=== PATIENT | female | born 2005 | race Caucasian/White ===

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

== ENCOUNTER 2023-01-05 11:56 | Outpatient (REF) | payer OTHER, SELFPAY | END 2023-01-05 11:57 | disposition home or self-care (01) | LOC: HO.LAB 11:56 | PROVIDERS: Visit Provider Nurse Practitioner Family | DX: R39.9 Unspecified symptoms and signs involving the genitourinary system (principal) | CPT/HCPCS: 87086 ==

== ENCOUNTER 2023-07-08 01:34 | Emergency (ER) | payer SELFPAY ==
--- NOTE | 2023-07-08 | ECG_ITS ---
Test Reason : CHEST PAIN Blood Pressure : / mmHG Vent. Rate : 088 BPM Atrial Rate : 088 BPM P-R Int : 142 ms QRS Dur : 082 ms QT Int : 368 ms P-R-T Axes : 039 055 048 degrees QTc Int : 445 ms Normal sinus rhythm Normal ECG No previous ECGs available Referred By: Generic ED Physician Electronically Signed By:AUGUSTINA ALVARENGA
[2023-07-08 01:52] VITALS: BP 124/71; PULSE 79; RESP 16; TEMP 36.9; O2SAT 100; BMI 32.0
--- NOTE | 2023-07-08 01:55 | MHC.EDTECH ---
PATIENT SIGN IN WITH CHEST PAIN PATIENT EKG TAKEN AND WAS READ BY PROVIDER ,BLOOD DRAWN DONE IN TRIAGE ,AND VITALS ,PT BACK IN WAITING ROOM .
[2023-07-08 02:01] LABS: Hematocrit 36.2 % (37.0-47.0); Hemoglobin 12.4 g/dl (12.0-16.0); Mean Corpuscular HGB Conc 34.3 g/dl (31.0-35.0); Mean Corpuscular Hemoglobin 28.2 pg (27.0-33.0); Mean Corpuscular Volume 82.3 fL (80.0-98.0); Mean Platelet Volume 9.4 fL (9.4-12.3); Platelet Count 378 X10*3/uL (160-400); Red Cell Distribution Width 12.8 % (11.0-16.0); White Blood Count 7.4 X10*3/uL (4.8-10.8)
[2023-07-08 02:18] LABS: Alanine Aminotransferase 19 U/L (0-31); Albumin Level 4.6 g/dL (3.5-5.0); Alkaline Phosphatase 84 U/L (39-117); Anion Gap 20 (12-20); Aspartate Amino Transferase 22 U/L (5-31); Bilirubin Total 0.3 mg/dL (0.0-1.0); Blood Urea Nitrogen 15 mg/dL (9-16); Calcium 10.1 mg/dL (8.4-10.2); Carbon Dioxide 22 mmol/L (22-29); Chloride 105 mmol/L (96-108); Creatinine Clr Calc Pharmacy 134.4; Estimated Glomerular Filt Rate > 60; Glucose Random 86 mg/dL (60-115); Potassium 3.9 mmol/L (3.3-5.1); Sodium 143 mmol/L (135-145)
[2023-07-08 02:27] LABS: Troponin-I High Sensitivity < 2.7 ng/L (<3.5-17.0)
[2023-07-08 02:29] VITALS: BP 136/77; PULSE 76; RESP 15; TEMP 36.6; O2SAT 100
--- NOTE | 2023-07-08 03:35 | ED_ITS ---
HPI - Chest Pain General Chief Complaint: Chest Pain Stated Complaint: Chest pain Time Seen by Provider: 07/08/23 03:31 Source: patient and family Mode of arrival: ambulatory Limitations: no limitations History of Present Illness HPI narrative: Patient comes to the emergency room accompanied by her mother. Patient complaining of palpitations. Patient states that earlier today after eating hamburgers she started having palpitations. Patient denies significant chest pain, no shortness of breath. At this time, patient is asymptomatic Related Data Home Medications Medication Instructions Recorded Confirmed No Known Home Meds 08/06/21 07/08/23 Allergies Allergy/AdvReac Type Severity Reaction Status Date / Time phenobarbital [PHENOBARBITAL] Allergy Unknown RASH Verified 01/05/23 11:47 phenobarbital Allergy Unknown rash Uncoded 01/05/23 11:47 Review of Systems 2 Review of Systems: Constitutional : No Weight loss, No Fever, No Chills, No Night Sweats, No Fatigue, No Malaise ENT/Mouth : No Hearing loss, No Ear Pain, No Nasal Congestion, No Sinus Pain, No Hoarseness, No sore throat, No Rhinorrhea, No Swallowing Difficulty Eyes: No Eye Pain, No Swelling, No Redness, No Foreign Body, No Discharge, No Vision Changes Cardiovascular : No Chest Pain, No SOB, No Dyspnea on Exertion, No Orthopnea, No Edema, complaining of Palpitations Respiratory : No Cough, No Sputum, No Wheezing, No Smoke Exposure, No Dyspnea Gastrointestinal : No Nausea, No Vomiting, No Diarrhea, No Constipation, No abdominal Pain, No Hematochezia, No Melena Genitourinary : no irregular bleeding, No Dysuria, No Urinary Frequency, No Hematuria, No Urinary Incontinence, No Urgency, No Flank Pain, No Urinary Flow Changes, No Hesitancy Musculoskeletal : No joint pain, No Myalgias, No Joint Swelling Skin : No Skin Lesions, No rash Neuro : No Weakness, No Numbness, No Paresthesias, No Loss of Consciousness, No Dizziness, No Headache Psych : No Anxiety/Panic, No Depression, No SI/HI/AH/VH, No Social Issues, Heme/Lymph: No Bruising, No Bleeding,No Lymphadenopathy Endocrine : No Polyuria, No Polydipsia, No Temperature Intolerance PMFSH Past Medical History Medical History (Updated 07/08/23 @ 03:40 by Albertina Estes MD) Fibromyalgia Family History Family History (Updated 06/25/21 @ 10:04 by Ivone Pineda CMA) Mother No problems noted. Social History Social History (Updated 06/25/21 @ 10:04 by Ivone Pineda CMA) Household Members: Family Alcohol intake: never Patient Tobacco Use Status: Never used Tobacco Smoked in Last 30 Days: No Use of substances other than those prescribed or required for medical reasons: No Advance Directives: No Advance Directives Information Provided: Yes Patient : No Physical Exam 2 Vital Signs: Vital Signs: Last Vital Signs Temp 97.9 F 07/08/23 02:29 Pulse 76 07/08/23 02:29 Resp 15 07/08/23 02:29 BP 136/77 07/08/23 02:29 Pulse Ox 100 07/08/23 02:29 O2 Del Method Room Air 07/08/23 02:29 BMI result Body Mass Index 32.0 Const: Other: Appearance: Alert. Oriented X3. No acute distress. Eyes: Pupils equal, round and reactive to light. ENT: Pharynx normal. Neck: Normal inspection. Neck supple. No lymph nodes noted. No crepitus CVS: Normal heart rate and rhythm. Pulses normal. Normal S1 and S2 Respiratory: No respiratory distress. Breath sounds normal. No Wheezing. No rales Abdomen: Soft and nontender. No rigidity. No distention. Skin: Skin warm and dry. Normal skin color. Normal skin turgor. Extremities: No lower extremity edema. No Lacerations. No Rash Neuro: Oriented X 3. No motor deficit. No sensory deficit. Moving all extremities. No slurred speech. CN 2 through 12 grossly intact Psych: calm, cooperative, normal affect Medical Decision Making Medical Decision Making MDM Narrative: -my interpretation of labs: Normal sinus rhythm, heart rate 88, no ST segment depression or elevation, not to be admission, QTC 445. Troponin negative -patient is asymptomatic. Patient struck to follow-up with her primary care physician. The patient keeps having palpitations, discussed with the patient and her mother that she will likely need a Holter monitor evaluation. - Differential Diagnosis Differential Diagnoses: The differential diagnosis associated with the presentation includes (Palpitations, anxiety, indigestion) Lab Data 07/08/23 01:53 07/08/23 01:53 Labs: Lab Results 07/08/23 Range/Units 01:53 WBC 7.4 (4.8-10.8) X10*3/uL RBC 4.40 (4.20-5.50) X10*6/uL Hgb 12.4 (12.0-16.0) g/dl Hct 36.2 L (37.0-47.0) % MCV 82.3 (80.0-98.0) fL MCH 28.2 (27.0-33.0) pg MCHC 34.3 (31.0-35.0) g/dl RDW 12.8 (11.0-16.0) % Plt Count 378 (160-400) X10*3/uL MPV 9.4 (9.4-12.3) fL Absolute Nucleated RBC 0.000 (0.0-0.012) X10*3/uL Nucleated RBC % (auto) 0.0 (0.0-0.2) /100WBC Sodium 143 (135-145) mmol/L Potassium 3.9 (3.3-5.1) mmol/L Chloride 105 (96-108) mmol/L Carbon Dioxide 22 (22-29) mmol/L Anion Gap 20 (12-20) BUN 15 (9-16) mg/dL Creatinine 0.76 (0.5-1.4) mg/dL Estim Creat Clear Calc 134.4 Estimated GFR > 60 Random Glucose 86 (60-115) mg/dL Calcium 10.1 (8.4-10.2) mg/dL Total Bilirubin 0.3 (0.0-1.0) mg/dL AST 22 (5-31) U/L ALT 19 (0-31) U/L Alkaline Phosphatase 84 (39-117) U/L Troponin I High Sens < 2.7 (<3.5-17.0) ng/L Total Protein 8.0 (6.5-8.0) g/dL Albumin 4.6 (3.5-5.0) g/dL Discharge Plan Discharge Clinical Impression: Palpitations Patient Disposition: Home, Self-Care Instructions: Heart Palpitations (ED) Additional Instructions: Please follow-up with your primary care physician tomorrow. If you have any worsening or new symptoms, please return to the emergency room or call 911 Prescriptions: No Action No Known Home Meds
[2023-07-08 03:46] VITALS: BP 130/79; PULSE 71; RESP 12; TEMP 36.8; O2SAT 98
== END 2023-07-08 04:00 | disposition home or self-care (01) ==
PROVIDERS: Emergency Provider Emergency Medicine
DX: R00.2 Palpitations (principal)
CPT/HCPCS: 36415; 80053; 84484; 85027; 93005; 99283; 99285

== ENCOUNTER 2023-12-21 23:37 | Emergency (ER) | payer MEDICAID, OTHER, SELFPAY ==
[2023-12-21 23:48] VITALS: BP 124/88; PULSE 98; RESP 16; TEMP 36.8; O2SAT 99; BMI 34.2
[2023-12-22 00:17] LABS: MANUAL DIFF FLAG NO
[2023-12-22 00:18] LABS: Basophils Percent Auto 0.4 % (0-2); Eosinophils Absolute Auto 0.1 X10*3/uL (0.0-0.4); Eosinophils Percent Auto 0.9 % (0-4); Hematocrit 35.5 % (37.0-47.0); Hemoglobin 12.6 g/dl (12.0-16.0); Imm Gran Abs Auto 0.01 X10*3/uL (0.00-0.03); Imm Gran Pct Auto 0.1 % (0.0-0.4); Lymphocytes Absolute Auto 2.2 X10*3/uL (1.2-4.9); Lymphocytes Percent Auto 27.1 % (20-40); Mean Corpuscular HGB Conc 35.5 g/dl (31.0-35.0); Mean Corpuscular Hemoglobin 28.3 pg (27.0-33.0); Mean Corpuscular Volume 79.6 fL (80.0-98.0); Mean Platelet Volume 8.8 fL (9.4-12.3); Monocytes Absolute Auto 0.5 X10*3/uL (0.1-1.2); Monocytes Percent Auto 6.3 % (2-11); Neutrophils Absolute Auto 5.2 x10*3/uL (2.0-8.3); Neutrophils Percent Auto 65.2 % (45-73); Platelet Count 384 X10*3/uL (160-400); Red Blood Count 4.46 X10*6/uL (4.20-5.50); Red Cell Distribution Width 12.7 % (11.0-16.0); White Blood Count 7.9 X10*3/uL (4.8-10.8)
[2023-12-22 00:19] LABS: Appearance Urine Clear; Color Urine Yellow; Glucose Urine UA Negative (Negative); Leukocyte Esterase Urine Negative (Negative); Nitrite Urine Negative (Negative); Specific Gravity - Urine >= 1.030 (1.005-1.025); UMIC TRIGGER UACC YES; Urine Blood Trace (Negative); Urine Ketones 40 mg/dL (Negative); Urine Protein Trace mg/dL (Neg-Trace)
[2023-12-22 00:24] LABS: Bacteria Urine None Seen (None Seen); Hyaline Casts Urine 0-2 /LPF (0-2); WBC Urine 0-5 /HPF (0-5)
[2023-12-22 00:38] LABS: Alanine Aminotransferase 19 U/L (0-31); Albumin Level 4.5 g/dL (3.5-5.0); Alkaline Phosphatase 81 U/L (39-117); Anion Gap 15 (12-20); Aspartate Amino Transferase 22 U/L (5-31); Bilirubin Total 0.6 mg/dL (0.0-1.0); Blood Urea Nitrogen 12 mg/dL (9-16); Calcium 9.5 mg/dL (8.4-10.2); Carbon Dioxide 23 mmol/L (22-29); Chloride 105 mmol/L (96-108); Creatinine Clr Calc Pharmacy 149.9; Estimated Glomerular Filt Rate > 60; Glucose Random 85 mg/dL (60-115); Lipase 42 U/L (8-78); Potassium 3.9 mmol/L (3.3-5.1); Sodium 139 mmol/L (135-145); Total Protein 7.9 g/dL (6.5-8.0)
[2023-12-22 00:45] LABS: HCG Quantitative < 2 mIU/mL
[2023-12-22 02:45] VITALS: BP 129/82; PULSE 81; RESP 16; TEMP 36.6; O2SAT 96
--- NOTE | 2023-12-22 03:14 | ED_ITS ---
HPI - Abdominal Pain General Chief Complaint: Abdominal Pain Stated Complaint: Abd pain Time Seen by Provider: 12/22/23 03:02 Source: patient Mode of arrival: ambulatory Limitations: no limitations History of Present Illness HPI narrative: Patient been have diffuse abdominal cramps for last 2 weeks does have history of fibromyalgia and increased stress lately and does have constipation off and on feel bloated no fever no chills no nausea no vomiting no blood in the stool Related Data Previous Rx's Medication Instructions Recorded dicyclomine 20 mg tablet 20 mg PO TID PRN abdominal pain 12/22/23 #20 tabs Allergies Allergy/AdvReac Type Severity Reaction Status Date / Time phenobarbital [PHENOBARBITAL] Allergy Unknown RASH Verified 01/05/23 11:47 phenobarbital Allergy Unknown rash Uncoded 01/05/23 11:47 Review of Systems Review of Systems Yes all other systems are reviewed and are negative [facility] Past Medical History Medical History Fibromyalgia Family History Family History Mother No problems noted. Social History Social History Household Members: Family Alcohol intake: current Patient Tobacco Use Status: Never used Tobacco Smoked in Last 30 Days: No Use of substances other than those prescribed or required for medical reasons: No Advance Directives: No Advance Directives Information Provided: Yes Physical Exam ED Vital Signs: Vital Signs - 24 hr 12/21/23 23:48 12/22/23 02:45 Temperature 98.3 F 97.8 F Pulse Rate 98 81 Respiratory Rate 16 16 Blood Pressure 124/88 129/82 Pulse Oximetry 99 96 Oxygen Delivery Method Room Air Room Air BMI result Body Mass Index 34.2 Appearance: Alert. Oriented X3. No acute distress. Eyes: No pallor or icterus ENT: Pharynx normal. Oral Mucosa moist Neck: Normal inspection. Neck supple. CVS: Normal heart rate and rhythm. Pulses normal. Respiratory: No respiratory distress. Equal air entry bilateral, no wheezing/rales/rhonchi Abdomen: Soft and no focal tenderness diffuse discomfort no rebound tenderness or guarding Bowel sounds are present, no mass palpable, no CVA tenderness Skin: Skin warm and dry. Normal skin color. Normal skin turgor. Extremities: No lower extremity edema. No calf tenderness Neuro: Oriented X 3. Medical Decision Making Lab Data MDM Lab Attestation statement: I reviewed the patient's lab results. 12/22/23 00:12 12/22/23 00:12 Labs: Lab Results 12/22/23 Range/Units 00:12 WBC 7.9 (4.8-10.8) X10*3/uL RBC 4.46 (4.20-5.50) X10*6/uL Hgb 12.6 (12.0-16.0) g/dl Hct 35.5 L (37.0-47.0) % MCV 79.6 L (80.0-98.0) fL MCH 28.3 (27.0-33.0) pg MCHC 35.5 H (31.0-35.0) g/dl RDW 12.7 (11.0-16.0) % Plt Count 384 (160-400) X10*3/uL MPV 8.8 L (9.4-12.3) fL Immature Gran % (Auto) 0.1 (0.0-0.4) % Neut % (Auto) 65.2 (45-73) % Lymph % (Auto) 27.1 (20-40) % [place] % (Auto) 6.3 (2-11) % Eos % (Auto) 0.9 (0-4) % Baso % (Auto) 0.4 (0-2) % Lymph # (Auto) 2.2 (1.2-4.9) X10*3/uL [place] # (Auto) 0.5 (0.1-1.2) X10*3/uL Eos # (Auto) 0.1 (0.0-0.4) X10*3/uL Baso # (Auto) 0.0 (0.0-0.2) X10*3/uL Abs Immat Gran (auto) 0.01 (0.00-0.03) X10*3/uL Absolute Neuts (auto) 5.2 (2.0-8.3) x10*3/uL Absolute Nucleated RBC 0.000 (0.0-0.012) X10*3/uL Nucleated RBC % (auto) 0.0 (0.0-0.2) /100WBC Sodium 139 (135-145) mmol/L Potassium 3.9 (3.3-5.1) mmol/L Chloride 105 (96-108) mmol/L Carbon Dioxide 23 (22-29) mmol/L Anion Gap 15 (12-20) BUN 12 (9-16) mg/dL Creatinine 0.70 (0.5-1.4) mg/dL Estim Creat Clear Calc 149.9 Estimated GFR > 60 Random Glucose 85 (60-115) mg/dL Calcium 9.5 (8.4-10.2) mg/dL Total Bilirubin 0.6 (0.0-1.0) mg/dL AST 22 (5-31) U/L ALT 19 (0-31) U/L Alkaline Phosphatase 81 (39-117) U/L Total Protein 7.9 (6.5-8.0) g/dL Albumin 4.5 (3.5-5.0) g/dL Lipase 42 (8-78) U/L Beta HCG, Quant < 2 mIU/mL Urine Color Yellow Urine Appearance Clear Urine pH 6.0 (5.0-9.0) Ur Specific [place] >= 1.030 H (1.005-1.025) Urine Protein Trace (Neg-Trace) mg/dL Urine Glucose (UA) Negative (Negative) mg/dL Urine Ketones 40 (Negative) mg/dL Urine Blood Trace H (Negative) Urine Nitrite Negative (Negative) Ur Leukocyte Esterase Negative (Negative) Urine RBC 6-10 H (0-2) /HPF Urine WBC 0-5 (0-5) /HPF Ur Squamous Epith Cells 6-10 (0-2) /HPF Urine Bacteria None Seen (None Seen) Hyaline Casts 0-2 (0-2) /LPF Discharge Plan Discharge Clinical Impression: Irritable bowel syndrome Patient Disposition: Home, Self-Care Instructions: Irritable Bowel Syndrome (ED) Additional Instructions: Likely have IBS Drink plenty of fluids Medication for abdominal cramping Follow-up with PCP Prescriptions: New dicyclomine 20 mg tablet 20 mg PO TID PRN (Reason: abdominal pain) Qty: 20 0RF
[2023-12-22] MEDS: Dicyclomine HCl 10 MG CAPSULE 20 MG PO (03:59)
== END 2023-12-22 04:06 | disposition home or self-care (01) ==
PROVIDERS: Emergency Provider Internal Medicine
DX: K58.9 Irritable bowel syndrome, unspecified (principal); R10.30 Lower abdominal pain, unspecified; K59.00 Constipation, unspecified; Z79.899 Other long term (current) drug therapy
CPT/HCPCS: 36415; 80053; 81001; 83690; 84702; 85025; 99283; 99284

== ENCOUNTER 2024-01-01 19:19 | Emergency (ER) | payer OTHER, SELFPAY ==
[2024-01-01 19:57] VITALS: BP 152/81; PULSE 78; RESP 18; TEMP 36.6; O2SAT 100; BMI 31.5
[2024-01-01 20:16] LABS: MANUAL DIFF FLAG NO
[2024-01-01 20:18] LABS: Basophils Percent Auto 0.3 % (0-2); Eosinophils Absolute Auto 0.1 X10*3/uL (0.0-0.4); Hemoglobin 12.4 g/dl (12.0-16.0); Imm Gran Abs Auto 0.03 X10*3/uL (0.00-0.03); Imm Gran Pct Auto 0.3 % (0.0-0.4); Lymphocytes Absolute Auto 2.1 X10*3/uL (1.2-4.9); Lymphocytes Percent Auto 22.4 % (20-40); Mean Corpuscular HGB Conc 34.4 g/dl (31.0-35.0); Mean Corpuscular Hemoglobin 28.1 pg (27.0-33.0); Mean Corpuscular Volume 81.6 fL (80.0-98.0); Mean Platelet Volume 9.3 fL (9.4-12.3); Monocytes Absolute Auto 0.4 X10*3/uL (0.1-1.2); Monocytes Percent Auto 4.4 % (2-11); Neutrophils Absolute Auto 6.6 x10*3/uL (2.0-8.3); Neutrophils Percent Auto 71.6 % (45-73); Platelet Count 354 X10*3/uL (160-400); Red Blood Count 4.41 X10*6/uL (4.20-5.50); Red Cell Distribution Width 12.5 % (11.0-16.0); White Blood Count 9.2 X10*3/uL (4.8-10.8)
[2024-01-01 20:31] LABS: Alanine Aminotransferase 16 U/L (0-31); Albumin Level 4.4 g/dL (3.5-5.0); Alkaline Phosphatase 78 U/L (39-117); Anion Gap 15 (12-20); Aspartate Amino Transferase 17 U/L (5-31); Bilirubin Total 0.4 mg/dL (0.0-1.0); Blood Urea Nitrogen 11 mg/dL (9-16); Carbon Dioxide 23 mmol/L (22-29); Chloride 106 mmol/L (96-108); Estimated Glomerular Filt Rate > 60; Glucose Random 77 mg/dL (60-115); Potassium 3.8 mmol/L (3.3-5.1); Sodium 140 mmol/L (135-145); Total Protein 7.7 g/dL (6.5-8.0)
[2024-01-01 20:54] LABS: Influenza A PCR NEGATIVE (Negative); Influenza B PCR NEGATIVE (Negative); Resp Syncy Virus RNA Qual PCR NEGATIVE (Negative); SARS COV2 PCR INHOUSE NEGATIVE (Negative)
--- NOTE | 2024-01-02 00:16 | ED_ITS ---
HPI - General Adult General Chief complaint: Abdominal Pain Stated complaint: abd pain/lft side pain, blood specs in stool Time Seen by Provider: 01/02/24 00:00 History of Present Illness HPI narrative: The patient is a 18-year-old female who has had problems with chronic abdominal symptoms for awhile and is thought to possibly have irritable bowel syndrome. She came to the emergency room approximately 10 days ago with complaints of abdominal cramping and was prescribed dicyclomine. She feels the cramping is somewhat better on the dicyclomine but she presents today with left-sided abdominal pain that she says has been bothering her for 3 weeks. She has also had a chronic cough. She also feels she has had specks of blood in her stool. She has not followed up with the PCP because she has not had a PCP lately. She says that she recently applied and says that she believes she was approved for [employer] so she is hopeful that she will be able to establish a primary care doctor through the [facility] system soon. She also feels she has had a chronic cough recently. She thinks she may have had a fever. Related Data Previous Rx's Medication Instructions Recorded dicyclomine 20 mg tablet 20 mg PO TID PRN abdominal pain 12/22/23 #20 tabs famotidine 40 mg tablet 40 mg PO DAILY #30 tabs 01/02/24 sucralfate 1 gram tablet 1 g PO TID #60 tabs 01/02/24 Allergies Allergy/AdvReac Type Severity Reaction Status Date / Time phenobarbital [PHENOBARBITAL] Allergy Unknown RASH Verified 01/01/24 20:01 phenobarbital Allergy Unknown rash Uncoded 01/05/23 11:47 Review of Systems 2 Review of Systems: Yes all other systems are reviewed and are negative [facility] Past Medical History Medical History Fibromyalgia Family History Family History Mother No problems noted. Social History Social History Household Members: Family Alcohol intake: current Patient Tobacco Use Status: Never used Tobacco Advance Directives: No Advance Directives Information Provided: No Physical Exam ED Vital Signs: Vital Signs - 24 hr 01/01/24 19:57 01/02/24 00:42 01/02/24 01:43 Temperature 97.8 F 98.0 F 98 F Pulse Rate 78 76 76 Respiratory Rate 18 17 17 Blood Pressure 152/81 H 128/85 128/85 Pulse Oximetry 100 99 99 Oxygen Delivery Method Room Air Room Air Room Air BMI result Body Mass Index 31.5 Const Other: The patient is a 18-year-old female who was awake and alert. She seems very shy. Does not seem in distress. HENMT Other: Face is symmetrical. Mucous membranes moist. Pharynx is unremarkable. Eyes General: appearance normal, both eyes and all related structures Eyelids: Yes eyelids normal Conjunctivae: conjunctivae normal Sclerae: sclerae normal Pupils: Equal, round and reactive pupils present Neck Other: Moving her neck easily Resp Effort & Inspection: normal respiratory effort Auscultation: clear to auscultation bilaterally Cardio Rate: regular rate Rhythm: regular rhythm Heart sounds: S1 normal heart sound present and S2 normal heart sound present GI Other: Abdomen seems soft. Mild left-sided tenderness without rebound or guarding. No significant right upper quadrant tenderness. No Rodgers's sign Back/Spine/Pelvis Other: The patient seemed to have bilateral CVA tenderness but I felt this may have been volitional Skin Other: Skin is pale and dry Neuro Other: The patient is awake and alert, cranial nerves are grossly intact. She moves her extremities normally. She appears nontoxic and grossly neurologically intact Cranial nerves: Yes Equal, round and reactive pupils present Extrem Other: No peripheral edema Medical Decision Making Medical Decision Making MDM Narrative: The patient presents with the abdominal discomfort which primarily seems to be left-sided. He has been taking dicyclomine which was prescribed at the emergency room here a few weeks ago. She says that this is helped with abdominal cramping she was previously experiencing. She feels her symptoms today are different. Abdomen is benign on exam. Lab testing is unremarkable. I suspect she has gastritis. She will be prescribed omeprazole and sucralfate. She has not had a PCP because she has not had insurance recently but she recently succeeded in getting [facility]. She hopes to follow up with [facility] in [place]. She will be discharged with instructions to take the omeprazole regularly on a daily basis and the sucralfate on an as-needed basis. Lab Data 01/01/24 20:11 01/01/24 20:11 Labs: Lab Results 01/01/24 01/02/24 Range/Units 20:11 00:43 WBC 9.2 (4.8-10.8) X10*3/uL RBC 4.41 (4.20-5.50) X10*6/uL Hgb 12.4 (12.0-16.0) g/dl Hct 36.0 L (37.0-47.0) % MCV 81.6 (80.0-98.0) fL MCH 28.1 (27.0-33.0) pg MCHC 34.4 (31.0-35.0) g/dl RDW 12.5 (11.0-16.0) % Plt Count 354 (160-400) X10*3/uL MPV 9.3 L (9.4-12.3) fL Immature Gran % (Auto) 0.3 (0.0-0.4) % Neut % (Auto) 71.6 (45-73) % Lymph % (Auto) 22.4 (20-40) % [place] % (Auto) 4.4 (2-11) % Eos % (Auto) 1.0 (0-4) % Baso % (Auto) 0.3 (0-2) % Lymph # (Auto) 2.1 (1.2-4.9) X10*3/uL [place] # (Auto) 0.4 (0.1-1.2) X10*3/uL Eos # (Auto) 0.1 (0.0-0.4) X10*3/uL Baso # (Auto) 0.0 (0.0-0.2) X10*3/uL Abs Immat Gran (auto) 0.03 (0.00-0.03) X10*3/uL Absolute Neuts (auto) 6.6 (2.0-8.3) x10*3/uL Absolute Nucleated RBC 0.000 (0.0-0.012) X10*3/uL Nucleated RBC % (auto) 0.0 (0.0-0.2) /100WBC Sodium 140 (135-145) mmol/L Potassium 3.8 (3.3-5.1) mmol/L Chloride 106 (96-108) mmol/L Carbon Dioxide 23 (22-29) mmol/L Anion Gap 15 (12-20) BUN 11 (9-16) mg/dL Creatinine 0.67 (0.5-1.4) mg/dL Estim Creat Clear Calc 150.0 Estimated GFR > 60 Random Glucose 77 (60-115) mg/dL Calcium 9.0 (8.4-10.2) mg/dL Total Bilirubin 0.4 (0.0-1.0) mg/dL AST 17 (5-31) U/L ALT 16 (0-31) U/L Alkaline Phosphatase 78 (39-117) U/L C-Reactive Protein < 0.10 (< or = 0.50) mg/dL Total Protein 7.7 (6.5-8.0) g/dL Albumin 4.4 (3.5-5.0) g/dL Urine Color Yellow Urine Appearance Cloudy Urine pH 6.5 (5.0-9.0) Ur Specific [place] 1.020 (1.005-1.025) Urine Protein Negative (Neg-Trace) mg/dL Urine Glucose (UA) Negative (Negative) mg/dL Urine Ketones Negative (Negative) mg/dL Urine Blood Negative (Negative) Urine Nitrite Negative (Negative) Ur Leukocyte Esterase Small (1+) H (Negative) Urine RBC 3-5 H (0-2) /HPF Urine WBC 0-5 (0-5) /HPF Ur Squamous Epith Cells 11-20 (0-2) /HPF Urine Bacteria 1+ (None Seen) Hyaline Casts 0-2 (0-2) /LPF Urine Test NEGATIVE (NEGATIVE) Influenza Type A (PCR) NEGATIVE (Negative) Influenza Type B (PCR) NEGATIVE (Negative) RSV RNA Qual (PCR) NEGATIVE (Negative) SARS-CoV-2 RNA (RT-PCR) NEGATIVE (Negative) Discharge Plan Discharge Clinical Impression: Abdominal pain Patient Disposition: Home, Self-Care Instructions: Gastritis (ED) Additional Instructions: I think your symptoms, or least the large part of your abdominal symptoms, may be related to stomach acid problems. Famotidine is a medication that helps reduce production of stomach acid. This medication should be taken once a day on a regular basis regardless of symptoms. Sucralfate as a soothing medication that can be used on an as-needed basis. Continue the dicyclomine as needed as well. Please continue your efforts to get a primary care doctor. Return to the emergency room if significantly worse Prescriptions: New famotidine 40 mg tablet 40 mg PO DAILY Qty: 30 0RF sucralfate 1 gram tablet 1 g PO TID Qty: 60 0RF No Action dicyclomine 20 mg tablet 20 mg PO TID PRN (Reason: abdominal pain) Qty: 20 0RF Referrals: Peg ashish. Soto Escobar [Provider Group] (abdominal symptoms) Interventions: ED Discharge Assessment Last Done: 01/02/24 01:43 Discharge Date/Time: 01/02/24 01:44
[2024-01-02 00:42] VITALS: BP 128/85; PULSE 76; RESP 17; TEMP 36.7; O2SAT 99
[2024-01-02 00:50] LABS: C Reactive Protein < 0.10 mg/dL (< or = 0.50)
[2024-01-02 00:57] LABS: Appearance Urine Cloudy; Color Urine Yellow; Glucose Urine UA Negative (Negative); Leukocyte Esterase Urine Small (1+) (Negative); Nitrite Urine Negative (Negative); PH 6.5 (5.0-9.0); UMIC TRIGGER UACC YES; Urine Blood Negative (Negative); Urine Ketones Negative (Negative); Urine Protein Negative (Neg-Trace)
[2024-01-02 01:00] LABS: UPreg QC Valid YES; Urine Pregnancy NEGATIVE (NEGATIVE)
[2024-01-02 01:09] LABS: Bacteria Urine 1+ (None Seen); Hyaline Casts Urine 0-2 /LPF (0-2); UACC Culture Trigger YES; WBC Urine 0-5 /HPF (0-5)
[2024-01-02 01:43] VITALS: BP 128/85; PULSE 76; RESP 17; TEMP 36.6; O2SAT 99
== END 2024-01-02 01:44 | disposition home or self-care (01) ==
PROVIDERS: Emergency Provider Emergency Medicine
DX: R10.9 Unspecified abdominal pain (principal); Z11.52 Encounter for screening for COVID-19; Z20.828 Contact with and (suspected) exposure to other viral communicable diseases
CPT/HCPCS: 0241U; 80053; 81001; 81025; 85025; 86140; 87086; 99283

== ENCOUNTER 2024-03-21 14:01 | Outpatient (AMB) | payer OTHER, SELFPAY ==
[2024-03-21 14:04] VITALS: BP 126/78; PULSE 80; TEMP 36.6; O2SAT 98
--- NOTE | 2024-03-21 14:04 | AM.OFFWIN_ITS ---
Intake Vital Signs 03/21/24 14:04 Height 5 ft 6 in BP 126/78 Blood Pressure Location Rt brachial Position Sitting Pulse 80 Pulse Source Pulse Oximeter Temp 97.8 F Temp Source Oral Pulse Oximetry (%) 98 Oxygen Delivery Method Room Air Intake Visit Reasons: EP Pelvic pain/discharge Intake Note: pt is here for pelvic pain with discharge since aug 2023 Patient Tobacco Use Status: Never used Tobacco Allergies phenobarbital [PHENOBARBITAL] Allergy (Unknown, Verified 03/21/24 14:04) RASH phenobarbital Allergy (Unknown, Uncoded 01/05/23 11:47) rash Do you need a note to return to daycare/school/sports/work: Yes HPI HPI Comments History of Present Illness Details Patient is a 18yo F who presents to office with pelvic pain/vaginal discharge since August She states she was without health insurance but gained it in January Was setting up PCP and unable to see hand splitter until she received a referral She said intermittent pelvic pain since August; said comes and goes and is worse after intercourse No pain currently, 0/10 She denies known STD exposure + vaginal discharge that is intermittent + urgency of urination without frequency or dysuria No rashes No fever or chills PFSH Medical History Fibromyalgia Family History Mother No problems noted. Social History Household Members: Family Alcohol intake: current Patient Tobacco Use Status: Never used Tobacco Review of Systems Const Denies chills and Denies fever(s) GI Denies abdominal pain, Denies diarrhea, Denies nausea and Denies vomiting Denies hematuria, Denies dysuria, Reports pelvic pain, Denies urinary incontinence and Reports urinary urgency Skin/Breast Denies rash Physical Exam Vital Signs: Last Vital Signs Temp 97.8 F 03/21/24 14:04 Pulse 80 03/21/24 14:04 BP 126/78 03/21/24 14:04 Pulse Ox 98 03/21/24 14:04 Oxygen Delivery Method Room Air 03/21/24 14:04 General: Non-toxic, NAD. Speaking full sentences. Skin: Warm dry throughout Respiratory: CTA bilaterally. No wheezes, rales or rhonchi Cardiac: RRR. No murmur Abdominal: BS present x 4. No rebound or guarding. No CVAT MSK: Full ROM extremities. Neurology: A/O. No aphasia or facial droop. Gait without abnormality Psych: Good mood and affect Results AMB Urinalysis, Automated UA Leukoctes 0 Martine/uL Last Edit by Terry Cortez CMA on 03/21/24 14:17 UA Nitrite Negative Last Edit by Terry Cortez CMA on 03/21/24 14:17 UA Urobilinogen 0.2 mg/dL Last Edit by Terry Cortez CMA on 03/21/24 14 :17 UA Protein 0 mg/dL Last Edit by Terry Cortez CMA on 03/21/24 14:17 UA pH 6.0 Last Edit by Terry Cortez CMA on 03/21/24 14:17 UA Blood 10 Bernardo/uL Last Edit by Terry Cortez CMA on 03/21/24 14:17 UA Specific [place] 1.015 Last Edit by Terry Cortez CMA on 03/21/24 14:17 UA Ketone Positive Last Edit by Terry Cortez CMA on 03/21/24 14:17 UA Bilirubin 0 mg/dL Last Edit by Terry Cortez CMA on 03/21/24 14:17 UA Glucose 0 mg/dL Last Edit by Terry Cortez CMA on 03/21/24 14:17 AMB Test Urine AMB Test Urine Negative Last Edit by JOSE Emerson on 03/21/24 14:27 Results Reviewed Results Reviewed: Laboratory Last Values Urine pH (Auto) 6.0 03/21/24 14:16 Specific [place] (Auto) 1.015 03/21/24 14:16 Urine Protein (Auto) 0 mg/dL 03/21/24 14:16 Glucose (UA)(Auto) 0 mg/dL 03/21/24 14:16 Urine Ketones (Auto) Positive 03/21/24 14:16 Urine Blood (Auto) 10 Bernardo/uL 03/21/24 14:16 Urine Nitrite (Auto) Negative 03/21/24 14:16 Urine Bilirubin (Auto) 0 mg/dL 03/21/24 14:16 Urine Urobilinogen (Auto) 0.2 mg/dL 03/21/24 14:16 Leukocyte Esterase (Auto) 0 Martine/uL 03/21/24 14:16 Tst Clinic Negative 03/21/24 14:26 Assessment & Plan Assessment & Plan (1) Pelvic pain: Code(s): R10.2 - Pelvic and perineal pain Plan: Patient seen and evaluated. U/A' negative infection HCG: negative Chlamydia and gonorrhea sent. Vaginitis swab sent Patient gave verbal understanding and had no additional questions or concerns at time of discharge All questions answered Orders: Orders AMB Urinalysis Automated Today Z13.9 - Encounter for screening, unspecified CT NG by PCR Today R10.2 - Pelvic and perineal pain AMB HCG Urine Test Today Z32.02 - Encounter for test, result negative Bacterial Vaginosis Panel Today R10.2 - Pelvic and perineal pain Coding Level of Care Code Est Pt Level 3 (36035) Diagnoses Pelvic pain R10.2
== END 2024-03-21 15:22 | disposition home or self-care (01) ==
PROVIDERS: Visit Provider Physician Assistant
DX: R10.2 Pelvic and perineal pain (principal); Z32.02 Encounter for pregnancy test, result negative
CPT/HCPCS: 81003; 81025; 99213

== ENCOUNTER 2024-03-21 14:27 | Outpatient (REF) | payer OTHER, SELFPAY ==
[2024-03-22 03:52] LABS: CT PCR NOT DETECTED (Not Detect.); NG PCR NOT DETECTED (Not Detect.)
[2024-03-22 10:54] LABS: Bacterial Vaginosis PCR NEGATIVE (Negative); Candida Group PCR NOT DETECTED (Not Detect); Candida glab krusei PCR NOT DETECTED (Not Detect); Trichomonas vaginalis PCR NOT DETECTED (Not Detect)
== END 2024-03-21 14:28 | disposition home or self-care (01) ==
LOC: HO.LAB 14:27
PROVIDERS: Visit Provider Physician Assistant
DX: R10.2 Pelvic and perineal pain (principal)
CPT/HCPCS: 0352U; 0353U

== ENCOUNTER 2024-04-04 10:27 | Emergency (ER) | payer OTHER, SELFPAY ==
[2024-04-04] VITALS (8 sets, daily range): BP systolic 117–137; BP diastolic 70–92; PULSE 63–75; RESP 16–18; TEMP 36.3–37; O2SAT 98–100; BMI 34.4
--- NOTE | ~2024-04-04 | CT_ITS ---
EXAMINATION: CT ABDOMEN AND PELVIS WITH CONTRAST CLINICAL INFORMATION: Abdominal pain COMPARISON: None available. TECHNIQUE: Multidetector volumetric images were obtained from the superior aspect of the liver through the pubic symphysis following administration 85 mL of Omnipaque 350 intravenous contrast. Sagittal and coronal reformatted images were obtained on the technologist's workstation. Oral contrast: No This CT examination was performed using dose optimization techniques as appropriate, variously including the following: *Automated exposure control *Adjustment of mA and/or kV according to patient size (this includes techniques or standardized protocols for targeted exams where dose is matched to indication/reason for exam; i.e. extremities or head) *Use of iterative reconstruction technique DLP: 784 mGy-cm FINDINGS: LUNG BASES: The visualized lung bases are unremarkable. LIVER, GALLBLADDER, AND BILIARY TREE: The liver is normal in size, shape, and attenuation. No focal hepatic lesion or biliary ductal dilatation is present. The gallbladder is unremarkable with no evidence of radiopaque gallstones, gallbladder wall thickening, or obvious pericholecystic inflammatory changes. PANCREAS: Unremarkable. SPLEEN: Unremarkable. ADRENAL GLANDS: Unremarkable. KIDNEYS AND URETERS: The kidneys are normal in size, shape, and attenuation. No hydronephrosis, hydroureter, or calculi seen. No perinephric stranding. BLADDER: Unremarkable. GASTROINTESTINAL TRACT: The small and large bowel are unremarkable. The appendix is unremarkable. ABDOMINAL WALL: No significant hernia is appreciated. LYMPH NODES: Normal. VASCULAR: Unremarkable. PELVIC VISCERA: There is trace of fluid in cul-de-sac most likely physiological OSSEOUS STRUCTURES: Unremarkable. CT/CT abdomen pelvis w IV con IMPRESSION: No significant abnormality. Fleischner guidelines were followed.
[2024-04-04 11:28] LABS: MANUAL DIFF FLAG NO
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
--- NOTE | 2024-04-04 11:31 | PC.NURSE ---
Pt comes from home for diffuse abdominal pain since December. Pt was recently diagnosed with IBS/gastritis. Pt states the pain is burning/throbbing throughout her mid abdomen, denies n/v/d. Reported she has been constipated, had small bowel movement this am where she noticed bright red specs of blood in her stool, she also states when she gets the pain she feels dizziness and lightheadedness. Pt had pasta for dinner last night with pain increasing shortly after dinner. Pt reports she feels as though her upper left quadrant is bulging out, abdomen soft and no bulging noted. A/ox4, lungs cta bilaterally, abdomen soft, tender with palpation, bowel sounds heard in all 4 quadrants, S1 and S2 auscultated. Resting in bed quietly, call kay within reach, awaiting further orders at this time.
[2024-04-04 11:35] LABS: Basophils Percent Auto 0.5 % (0-2); Eosinophils Absolute Auto 0.1 X10*3/uL (0.0-0.4); Hematocrit 34.1 % (37.0-47.0); Imm Gran Abs Auto 0.01 X10*3/uL (0.00-0.03); Imm Gran Pct Auto 0.2 % (0.0-0.4); Lymphocytes Absolute Auto 1.7 X10*3/uL (1.2-4.9); Lymphocytes Percent Auto 29.3 % (20-40); Mean Corpuscular HGB Conc 35.2 g/dl (31.0-35.0); Mean Corpuscular Volume 79.7 fL (80.0-98.0); Mean Platelet Volume 9.4 fL (9.4-12.3); Monocytes Absolute Auto 0.4 X10*3/uL (0.1-1.2); Neutrophils Absolute Auto 3.6 x10*3/uL (2.0-8.3); Platelet Count 354 X10*3/uL (160-400); Red Blood Count 4.28 X10*6/uL (4.20-5.50); White Blood Count 5.9 X10*3/uL (4.8-10.8)
[2024-04-04 11:45] LABS: Anion Gap 9 (12-20)
[2024-04-04 11:49] LABS: Alanine Aminotransferase 14 U/L (0-31); Albumin Level 4.2 g/dL (3.5-5.0); Alkaline Phosphatase 69 U/L (39-117); Aspartate Amino Transferase 17 U/L (5-31); Bilirubin Total 0.4 mg/dL (0.0-1.0); Blood Urea Nitrogen 12 mg/dL (9-16); Calcium 9.6 mg/dL (8.4-10.2); Carbon Dioxide 26 mmol/L (22-29); Chloride 108 mmol/L (96-108); Creatinine Clr Calc Pharmacy 164.2; Estimated Glomerular Filt Rate > 60; Glucose Random 81 mg/dL (60-115); Lipase 32 U/L (8-78); Magnesium 1.9 mg/dL (1.6-2.6); Sodium 139 mmol/L (135-145); Total Protein 7.2 g/dL (6.5-8.0)
[2024-04-04 11:59] LABS: HCG Quantitative < 2 mIU/mL
[2024-04-04] MEDS: 0.9 % Sodium Chloride 1,000 ML 999 ML IV (12:40)
[2024-04-04 12:42] LABS: Influenza A PCR NEGATIVE (Negative); Influenza B PCR NEGATIVE (Negative); Resp Syncy Virus RNA Qual PCR NEGATIVE (Negative); SARS COV2 PCR INHOUSE NEGATIVE (Negative)
[2024-04-04] MEDS: Morphine Sulfate 2 MG/ML CARTRIDGE IVPUSH (12:54)
[2024-04-04] MEDS: ondansetron HCL 4 MG/2 ML VIAL IVPUSH (12:54)
[2024-04-04] MEDS: Pantoprazole Sodium 40 MG/10 ML VIAL IVPUSH (12:54)
[2024-04-04] MEDS: iohexoL 350 MG/ML 75 ML INFUS..BTL 85 ML IV (13:18)
[2024-04-04 15:54] LABS: Appearance Urine Clear; Color Urine Yellow; Glucose Urine UA Negative (Negative); Leukocyte Esterase Urine Small (1+) (Negative); Nitrite Urine Negative (Negative); PH 5.5 (5.0-9.0); Specific Gravity - Urine 1.025 (1.005-1.025); UMIC TRIGGER UACC YES; Urine Blood Negative (Negative); Urine Ketones Negative (Negative); Urine Protein Negative (Neg-Trace)
[2024-04-04 16:18] LABS: Bacteria Urine Trace (None Seen); Hyaline Casts Urine 0-2 /LPF (0-2); RBC Urine 0-2 /HPF (0-2); UACC Culture Trigger YES; WBC Urine 0-5 /HPF (0-5)
== END 2024-04-04 16:53 | disposition home or self-care (01) ==
PROVIDERS: Physician Assistant Medical; Emergency Provider Emergency Medicine
DX: N39.0 Urinary tract infection, site not specified (principal); R10.9 Unspecified abdominal pain; M79.7 Fibromyalgia; Z03.818 Encounter for observation for suspected exposure to other biological agents ruled out
CPT/HCPCS: 0241U; 36415; 74177; 80053; 81001; 81003; 83690; 83735; 84702; 85025; 87086; 96374; 96375; 99284; 99285; C9113; J2270; J2405; Q9967

== ENCOUNTER 2024-08-24 14:28 | Outpatient (AMB) | payer OTHER, SELFPAY ==
--- NOTE | 2024-08-24 14:32 | AM.OFFWIN_ITS ---
Intake Vital Signs 08/24/24 14:35 Height 5 ft 6 in BP 118/72 Blood Pressure Location Lt brachial Position Sitting Pulse 73 Pulse Source Pulse Oximeter Temp 98.4 F Temp Source Oral Pulse Oximetry (%) 98 Intake Visit Reasons: EP-UTI Intake Note: pt is here for UTI Patient Tobacco Use Status: Never used Tobacco Accompanied by: Self / Same As Patient Allergies phenobarbital [PHENOBARBITAL] Allergy (Unknown, Verified 08/24/24 14:35) RASH phenobarbital Allergy (Unknown, Uncoded 04/04/24 10:46) rash Do you need a note to return to daycare/school/sports/work: No HPI HPI Comments History of Present Illness Details Patient is a 18-year-old female complaining of 2 days of cloudy urine, burning with urination, malodorous urine, increase in frequency of urination as well as some lower abdominal pain and a headache. She denies any fevers but does say she feels hot flashes. She denies any low back pain or blood in her urine. [facility] Medical History Fibromyalgia Family History Mother No problems noted. Social History Household Members: Family Alcohol intake: current Patient Tobacco Use Status: Never used Tobacco Review of Systems Const All systems reviewed & are unremarkable except as noted in HPI and below Physical Exam Vital Signs: Last Vital Signs Temp 98.4 F 08/24/24 14:35 Pulse 73 08/24/24 14:35 BP 118/72 08/24/24 14:35 Pulse Ox 98 08/24/24 14:35 Const General: cooperative, healthy appearing, comfortable and no acute distress Orientation/consciousness: patient oriented x3 HEENT Head: Yes normal to inspection Ears: hearing grossly normal bilaterally General nose exam: Normal external nose present Face and sinus: Yes normal facial exam Neck Neck: Yes normal visual inspection, Yes trachea midline and Yes supple Resp Effort & Inspection: normal respiratory effort and able to speak in complete sentences General: Yes no CVA tenderness Back/Spine/Pelvis Back: no CVA tenderness Skin General skin exam: no rashes or lesions noted Neuro General: patient oriented x3 Psych Appearance: grossly normal Speech and movement: Normal speech and movement present Attitude: cooperative Thought process: Normal thought process present Insight: Good insight present (Psych) Judgement: Good judgement present (Psych) Results AMB Urinalysis, Automated UA Leukoctes 0 Martine/uL Last Edit by Terry Cortez CMA on 08/24/24 14:45 UA Nitrite Negative Last Edit by Terry Cortez CMA on 08/24/24 14:45 UA Urobilinogen 0.2 mg/dL Last Edit by Terry Cortez CMA on 08/24/24 14 :45 UA Protein 0 mg/dL Last Edit by Terry Cortez CMA on 08/24/24 14:45 UA pH 6.0 Last Edit by Terry Cortez CMA on 08/24/24 14:45 UA Blood 25 Bernardo/uL Last Edit by Terry Cortez CMA on 08/24/24 14:45 UA Specific [place] 1.030 Last Edit by Terry Cortez CMA on 08/24/24 14:45 UA Ketone Positive Last Edit by Terry Cortez CMA on 08/24/24 14:45 UA Bilirubin 0 mg/dL Last Edit by Terry Cortez CMA on 08/24/24 14:45 UA Glucose 0 mg/dL Last Edit by Terry Cortez CMA on 08/24/24 14:45 Results Reviewed Results Reviewed: Laboratory Last Values Urine pH (Auto) 6.0 08/24/24 14:44 Specific [place] (Auto) 1.030 08/24/24 14:44 Urine Protein (Auto) 0 mg/dL 08/24/24 14:44 Glucose (UA)(Auto) 0 mg/dL 08/24/24 14:44 Urine Ketones (Auto) Positive 08/24/24 14:44 Urine Blood (Auto) 25 Bernardo/uL 08/24/24 14:44 Urine Nitrite (Auto) Negative 08/24/24 14:44 Urine Bilirubin (Auto) 0 mg/dL 08/24/24 14:44 Urine Urobilinogen (Auto) 0.2 mg/dL 08/24/24 14:44 Leukocyte Esterase (Auto) 0 Martine/uL 08/24/24 14:44 Assessment & Plan Assessment & Plan (1) UTI (urinary tract infection): Code(s): N39.0 - Urinary tract infection, site not specified Qualifiers: Urinary tract infection type: acute cystitis Hematuria presence: with hematuria Qualified Code(s): N30.01 - Acute cystitis with hematuria Plan: Urinalysis negative for leuks or nitrites, positive for blood, we will treat for UTI. Did give patient warning signs and when to go to the emergency department in case this is kidney stones however she had no CVA tenderness and she is young so less likely to be a stone. Plan See above Orders: Orders AMB Urinalysis Automated Today Z13.9 - Encounter for screening, unspecified Medications: New cefuroxime axetil 500 mg PO Q12H 10 tabs 0RF Coding Level of Care Code New Pt Level 3 (21578) Diagnoses Acute cystitis with hematuria N30.01 Urinary tract infection type: acute cystitis Hematuria presence: with hematuria
[2024-08-24 14:35] VITALS: BP 118/72; PULSE 73; TEMP 36.9; O2SAT 98
== END 2024-08-24 15:15 | disposition home or self-care (01) ==
PROVIDERS: Visit Provider Physician Assistant
DX: N30.01 Acute cystitis with hematuria (principal); Z13.9 Encounter for screening, unspecified

== ENCOUNTER → 2024-08-24 14:28 | Outpatient (BNVA) | payer OTHER, SELFPAY | DX: N30.01 Acute cystitis with hematuria (principal) | CPT/HCPCS: 81003; 99202 ==

== ENCOUNTER 2024-08-27 11:58 | Outpatient (AMB) | payer OTHER, SELFPAY ==
--- NOTE | 2024-08-27 13:21 | AM.OFFWIN_ITS ---
Intake Vital Signs 08/27/24 13:24 Height 5 ft 6 in Weight 200 lb BMI 32.3 BP 122/90 H Blood Pressure Location Rt brachial Position Sitting Pulse 76 Pulse Source Pulse Oximeter Temp 97.5 F Temp Source Temporal Artery Scan Pulse Oximetry (%) 98 Oxygen Delivery Method Room Air Intake Visit Reasons: EP-chest pain, palpitation Intake Note: Britany is a 18 year old female who presents to the office today for chest pain, palpitation x2 days. Pt States she feels like an elephant is sitting on her c hest. Pt states she did have a similar episode like this last year which she states she went to the ER for but was told it was possibly due to her fibromyalgia. Patient Tobacco Use Status: Never used Tobacco Allergies phenobarbital [PHENOBARBITAL] Allergy (Unknown, Verified 08/27/24 13:25) RASH phenobarbital Allergy (Unknown, Uncoded 08/27/24 13:25) rash HPI EP-chest pain, palpitation HPI Details This note is constructed using voice recognition software. While every effort has been made to ensure accuracy, patcher wood welder errors may have been included. The patient is a 18 year old female who presents to the clinic today with chest pain and palpitations for the past 2 days. She reports she had similar symptoms about 1 year ago and was seen in the emergency room which she was advised that it was likely related to her fibromyalgia. She does reportedly have a current fibromyalgia flare where she gets muscle weakness, generalized fatigue, and pain in her muscles of her arms, legs, and upper chest wall. She reports the pain to be midsternal, slightly to the left and right of the sternum, and reproducible with palpation on the right side. She also reports that the pain is worse when she is leaning forward. She denies shortness of breath, heartburn, or any other associated symptoms. [facility] Medical History Fibromyalgia Family History Mother No problems noted. Social History Household Members: Family Alcohol intake: current Patient Tobacco Use Status: Never used Tobacco Review of Systems Const All systems reviewed & are unremarkable except as noted in HPI and below Physical Exam Vital Signs: Last Vital Signs Temp 97.5 F 08/27/24 13:24 Pulse 76 08/27/24 13:24 BP 122/90 H 08/27/24 13:24 Pulse Ox 98 08/27/24 13:24 Oxygen Delivery Method Room Air 08/27/24 13:24 BMI result Body Mass Index 32.3 Const General: cooperative, healthy appearing, comfortable, no acute distress and well developed Orientation/consciousness: patient oriented x3 Limitations: no limitations Neck Neck: Yes normal visual inspection Resp Effort & Inspection: normal respiratory effort and able to speak in complete sentences Auscultation: clear to auscultation bilaterally Cardio Rate: regular rate Rhythm: regular rhythm Heart sounds: normal S1 and S2 GI Inspection: Yes normal to inspection Palpation (GI): Soft to palpation and nontender Skin General skin exam: no rashes or lesions noted Neuro General: patient oriented x3 Extrem General: Yes normal to inspection Office Procedures EKG 35212-[id number], Complete Results Reviewed Results Reviewed: EKG appears normal sinus rhythm. Assessment & Plan Assessment & Plan (1) Chest wall pain: Code(s): R07.89 - Other chest pain Plan: EKG appears normal, no concern for cardiac involvement. Given that symptoms are reproducible likely musculoskeletal in nature. Advised supportive measures including Tylenol versus Motrin, topical muscle rubs, heat ice. Advised follow up with worsening symptoms or failure to resolve. Plan See above for full details and plan. Orders: Orders AMB EKG-In Office Today R07.9 - Chest pain, unspecified Coding Level of Care Code Est Pt Level 4 (89757) Diagnoses Chest wall pain R07.89 CPT Codes EKG - CPT: 18815-[id number], Complete ([id number]) Time Spent (min) 25
[2024-08-27 13:24] VITALS: BP 122/90; PULSE 76; TEMP 36.4; O2SAT 98; BMI 32.3
== END 2024-08-27 14:37 | disposition home or self-care (01) ==
PROVIDERS: Visit Provider Registered Nurse
DX: R07.89 Other chest pain (principal)

== ENCOUNTER → 2024-08-27 11:58 | Outpatient (BNVA) | payer OTHER, SELFPAY | PROVIDERS: Visit Provider Registered Nurse | DX: R07.89 Other chest pain (principal) | CPT/HCPCS: 93005; 99212 ==

== ENCOUNTER 2025-04-25 12:57 | Emergency (ER) | payer OTHER, SELFPAY ==
--- NOTE | ~2025-04-25 | CT_ITS ---
CLINICAL HISTORY: dizziness CT head without contrast Comparison: None provided Findings: No intra-axial mass, midline shift, hydrocephalus, or acute hemorrhage. The ventricles and subarachnoid spaces are normal in size in the ventricles are normal in position. No territorial infarct. There is no sinus or mastoid fluid. The orbits are within normal limits. No acute skull fracture. IMPRESSION: 1. No acute intracranial findings. This document has been electronically signed by: Humera Cerna MD on 04/25/2025 23:26:15
--- NOTE | ~2025-04-25 | XR_ITS ---
EXAMINATION: XR CHEST CLINICAL INFORMATION: CP, dyspnea COMPARISON: None available. TECHNIQUE: 2 views of the chest were obtained. FINDINGS: No significant abnormality is noted involving the heart, lungs, mediastinum, bony thorax or soft tissues. XR/XR chest 2V IMPRESSION: No acute disease. Electronically signed by: Mike Rodriguez MD 04/25/2025 01:46 PM EDT RP
--- NOTE | 2025-04-25 12:59 | ECG_ITS ---
Test Reason : CHEST PAIN Blood Pressure : */* mmHG Vent. Rate : 71 BPM Atrial Rate : 71 BPM P-R Int : 136 ms QRS Dur : 86 ms QT Int : 392 ms P-R-T Axes : -26 62 50 degrees QTcB Int : 425 ms Normal sinus rhythm Normal ECG When compared with ECG of 08-Jul-2023 01:40, No significant changes seen Referred By: Generic ED Physician Electronically Signed By: YAMILE HDEZ
[2025-04-25 13:12] VITALS: BP 124/92; PULSE 72; RESP 16; TEMP 36.6; O2SAT 100; BMI 31.8
--- NOTE | 2025-04-25 13:13 | ED_ITS ---
[facility] - General Adult General Chief complaint: Dizziness Stated complaint: dizziness chest pain Time Seen by Provider: 04/25/25 17:45 Source: patient and RN notes reviewed Mode of arrival: ambulatory Limitations: no limitations History of Present Illness ED Provider: Moni Huitron PA-C [facility] narrative: This is a 19-year-old female, with a history of fibromyalgia who started on Lyrica several months ago, who presents emergency department with multiple complaints. Patient reports that over the last 3 weeks she has had increased lymph node swelling in her neck. She states that she does have slight pain on the left side of her neck - however denies having a sore throat. She also states that she has had intermittent dizziness which she states is ?chronic?, she has had this for multiple months. She occasionally does get headaches as well. She does not have a headache at this time. She denies feeling any dizziness at this moment. Patient denies any severe chest pain or palpitations. No recent travel, hospitalizations or surgeries. She is not on control. No history of blood clots. She is eating and drinking without difficulty. She denies any abdominal pain, nausea, vomiting or diarrhea. No urinary symptoms. Denies chance of . No abnormal vaginal discharge or bleeding. Denies any known family medical history. No other complaints or concerns at this time. MD complaint: Multiple complaints Onset (ago): day(s) Radiation: non-radiation Quality: aching Pain Consistency: constant Relieving factors: none Exacerbating factors: none Associated symptoms: denies other symptoms Treatments prior to arrival: none Related Data Home Medications ?Medication ?Instructions ?Recorded ?Confirmed famotidine 40 mg tablet 40 mg PO DAILY 03/21/24 sucralfate 1 gram tablet 1 g PO BID 03/21/24 gabapentin 100 mg capsule 100 mg PO DAILY 08/24/24 Previous Rx's ?Medication ?Instructions ?Recorded omeprazole 40 mg capsule,delayed 40 mg PO DAILY 7 days #7 caps 04/04/24 release cefuroxime axetil 500 mg tablet 500 mg PO Q12H #10 tab s 08/24/24 Allergies Allergy/AdvReac Type Severity Reaction Status Date / Time phenobarbital (PHENOBARBITAL) Allergy Unknown RASH Verified 04/25/25 13:14 Review of Systems 2 Review of Systems: Yes all other systems are reviewed and are negative Constitutional: Constitutional: Reports as per [facility] Past Medical History Attestation statement: The following information was validated with the patient. Medical History Fibromyalgia Family History Family History Mother No problems noted. Social History Social History Household Members: Family Alcohol intake: current Alcohol intake frequency: holidays/special occasions only Patient Tobacco Use Status: Never used Tobacco Smoked in Last 30 Days: No Advance Directives: No Advance Directives Information Provided: No Do you have a plan to hurt others: No Plan Physical Exam ED Vital Signs: Vital Signs - 24 hr 04/25/25 13:12 04/25/25 17:52 04/25/25 18:24 Temperature 97.9 F 97.2 F Pulse Rate 72 75 75 Respiratory Rate 16 18 Blood Pressure 124/92 H 132/79 118/76 Pulse Oximetry 100 97 Oxygen Delivery Method Room Air Room Air 04/25/25 18:24 04/25/25 18:25 04/25/25 20:25 Temperature 97.9 F Pulse Rate 83 86 71 Respiratory Rate 18 Blood Pressure 125/73 126/70 125/73 Pulse Oximetry 97 Oxygen Delivery Method Room Air 04/25/25 22:40 Temperature 98.1 F Pulse Rate 69 Respiratory Rate 18 Blood Pressure 119/71 Pulse Oximetry 97 Oxygen Delivery Method Room Air BMI result Body Mass Index 31.8 Const General: cooperative, comfortable and no acute distress Orientation/consciousness: patient oriented x3 Limitations: no limitations [facility] Head: Yes normal to inspection, Yes normocephalic and Yes atraumatic Ears: hearing grossly normal bilaterally General nose exam: Normal external nose present Face and sinus: Yes normal facial exam Mouth: Normal oral and palatal mucosa present, oropharynx normal and moist mucous membranes Throat: Yes posterior oropharynx normal Eyes General: appearance normal, both eyes and all related structures Eyelids: Yes eyelids normal Conjunctivae: conjunctivae normal Sclerae: sclerae normal Pupils: Equal, round and reactive pupils present EOM: EOMs intact bilaterally Neck Neck: Yes normal visual inspection, Yes full ROM and Yes no lymphadenopathy Lymphatic: no lymphadenopathy noted Chest Chest palpation & inspection: normal inspection of the chest Resp Effort & Inspection: normal respiratory effort and able to speak in complete sentences Auscultation: clear to auscultation bilaterally, no crackles, no rales, no rhonchi and no wheezes Cardio Rate: regular rate Rhythm: regular rhythm Heart sounds: S1 normal heart sound present and S2 normal heart sound present GI Inspection: Yes normal to inspection Skin General skin exam: no rashes or lesions noted Trauma: no lacerations or abrasions Wounds: no wounds Neuro General: patient oriented x3 and moves all extremities Cranial nerves: Yes CN's II-XII intact bilaterally and Yes Equal, round and reactive pupils present Cognition (Neuro): normal cognition Gait exam (Neuro): Normal gait present Motor exam (neuro): 5/5 motor strength present throughout and Pronator motor function not present Romberg Test: Negative Extrem General: Yes normal to inspection Right upper extremity: normal to inspection Left upper extremity: normal to inspection Right lower extremity: normal to inspection Left lower extremity: normal to inspection Course Course Course Narrative: This is a rapid medical exam performed by Mary Anderson NP: Additional HPI, ROS, PE not included below will be deferred to primary provider. Patient is a 19y/o F presenting with complaint of chest pain, dizziness and shortness of breath for the past 3 weeks. Recently started Lyrica 2 mos ago. Called PCP who referred her here. Rates current pain at 3/10. Plan: EKG, labs Reevaluation(s) Reevaluation #1: 9:18 PM 04/25/2025 (Jose Alejandro COULTER): Patient was signed out to this provider at shift change, in summary the patient is a 19-year-old female with history of fibromyalgia presenting to the ED with 3 weeks of multiple complaints including chest pain, shortness of breath, fatigue, dizziness, swollen lymph nodes, and generalized body aches. The patient's workup at sign-out was largely unremarkable, no leukocytosis, significant anemia, electrolyte abnormality, or MINDY. No LFT abnormalities. TSH normal. Urinalysis unremarkable. The patient underwent orthostatic vital signs which showed no evidence of orthostasis. The patient was signed out to this provider pending D-dimer, viral swabs, and CT head. At this time the patient's D-dimer has resulted and is negative, viral swabs are negative, patient's CT head is pending. We will follow up CT head and plan for discharge with outpatient follow up pending unremarkable CT. 11:54 PM 04/25/2025 (Jose Aeljandro COULTER): Patient's CT head and resulted and shows no acute intracranial pathology. The patient will be discharged to follow up per care plan as outlined by initial provider. Medical Decision Making Medical Decision Making [facility] Narrative: This is a 19-year-old female who presents emergency department with concerns of intermittent dizziness, shortness of breath. On arrival, vital signs within normal limits. She is speaking full sentences under no acute distress. She states that these symptoms have been ongoing for several months however reports that over the last 3 weeks these had worsened. She is neurologically intact with no focal deficits. Labs were obtained prior to my evaluation, she has no leukocytosis, she has a normocytic anemia with an H&H of 11.9/33.7, chemistry revealing no significant electrolyte derangement. She is not . Urine shows small blood and ketones, otherwise does not appear to be infectious. After my assessment, I did add on several testing including a D-dimer given occasional shortness for breath, a Monospot, strep swab, and COVID swab. I also ordered a CT head to rule out any intracranial mass. She is neurologically intact, has no risk factors, and therefore risk of the this is unlikely. Denies any drug or alcohol use. At this time, we are awaiting CT head, orthostatic vitals, D-dimer, mono spot, strep swab. Sign-out given to my colleague, Attila Neumann PA-C pending this overall work up. Differential Diagnosis Differential Diagnoses: The differential diagnosis associated with the presentation includes Lab Data [facility] Lab Attestation statement: I reviewed the patient's lab results. See MDM and course 04/25/25 13:33 04/25/25 13:33 Labs: Lab Results 04/25/25 04/25/25 04/25/25 Range/Units 13:33 18:59 19:00 WBC 5.5 (4.8-10.8) X10*3/uL RBC 4.13 L (4.20-5.50) X10*6/uL Hgb 11.9 L (12.0-16.0) g/dl Hct 33.7 L (37.0-47.0) % MCV 81.6 (80.0-98.0) fL MCH 28.8 (27.0-33.0) pg MCHC 35.3 H (31.0-35.0) g/dl RDW 12.0 (11.0-16.0) % Plt Count 344 (160-400) X10*3/uL MPV 9.5 (9.4-12.3) fL Immature Gran % (Auto) 0.2 (0.0-0.4) % Neut % (Auto) 63.9 (45-73) % Lymph % (Auto) 27.3 (20-40) % [place] % (Auto) 6.1 (2-11) % Eos % (Auto) 2.0 (0-4) % Baso % (Auto) 0.5 (0-2) % Lymph # (Auto) 1.5 (1.2-4.9) X10*3/uL [place] # (Auto) 0.3 (0.1-1.2) X10*3/uL Eos # (Auto) 0.1 (0.0-0.4) X10*3/uL Baso # (Auto) 0.0 (0.0-0.2) X10*3/uL Abs Immat Gran (auto) 0.01 (0.00-0.03) X10*3/uL Absolute Neuts (auto) 3.5 (2.0-8.3) x10*3/uL Absolute Nucleated RBC 0.000 (0.0-0.012) X10*3/uL Nucleated RBC % (auto) 0.0 (0.0-0.2) /100WBC D-Dimer High Sensitivty NG/ML Sodium 141 (135-145) mmol/L Potassium 3.7 (3.3-5.1) mmol/L Chloride 106 (96-108) mmol/L Carbon Dioxide 27 (22-29) mmol/L Anion Gap 12 (12-20) BUN 9 (9-16) mg/dL Creatinine 0.67 (0.5-1.4) mg/dL Estim Creat Clear Calc 149.4 Estimated GFR > 60 Random Glucose 79 (60-115) mg/dL Calcium 9.0 D (8.4-10.2) mg/dL Magnesium 1.8 (1.6-2.6) mg/dL Total Bilirubin 0.7 (0.0-1.0) mg/dL AST 19 (5-31) U/L ALT 15 (0-31) U/L Alkaline Phosphatase 71 (39-117) U/L Total Protein 7.1 (6.5-8.0) g/dL Albumin 4.6 (3.5-5.0) g/dL TSH 1.74 (0.32-4.0) uIU/mL Beta HCG, Quant < 2 < 2 mIU/mL Urine Color Yellow Urine Appearance Clear Urine pH 6.0 (5.0-9.0) Ur Specific [place] 1.020 (1.005-1.025) Urine Protein Negative (Neg-Trace) mg/dL Urine Glucose (UA) Negative (Negative) mg/dL Urine Ketones 15 (Negative) mg/dL Urine Blood Small (1+) H (Negative) Urine Nitrite Negative (Negative) Ur Leukocyte Esterase Negative (Negative) Urine RBC 0-2 (0-2) /HPF Urine WBC 0-5 (0-5) /HPF Ur Squamous Epith Cells 3-5 (0-2) /HPF Urine Bacteria None Seen (None Seen) Hyaline Casts 0-2 (0-2) /LPF Monoscreen Negative (Negative) Influenza Type A (PCR) NEGATIVE (Negative) Influenza Type B (PCR) NEGATIVE (Negative) RSV RNA Qual (PCR) NEGATIVE (Negative) SARS-CoV-2 RNA (RT-PCR) NEGATIVE (Negative) S. pyogenes GrpA YUMIKO (Negative) 04/25/25 04/25/25 Range/Units 19:01 19:14 WBC (4.8-10.8) X10*3/uL RBC (4.20-5.50) X10*6/uL Hgb (12.0-16.0) g/dl Hct (37.0-47.0) % MCV (80.0-98.0) fL MCH (27.0-33.0) pg MCHC (31.0-35.0) g/dl RDW (11.0-16.0) % Plt Count (160-400) X10*3/uL MPV (9.4-12.3) fL Immature Gran % (Auto) (0.0-0.4) % Neut % (Auto) (45-73) % Lymph % (Auto) (20-40) % [place] % (Auto) (2-11) % Eos % (Auto) (0-4) % Baso % (Auto) (0-2) % Lymph # (Auto) (1.2-4.9) X10*3/uL [place] # (Auto) (0.1-1.2) X10*3/uL Eos # (Auto) (0.0-0.4) X10*3/uL Baso # (Auto) (0.0-0.2) X10*3/uL Abs Immat Gran (auto) (0.00-0.03) X10*3/uL Absolute Neuts (auto) (2.0-8.3) x10*3/uL Absolute Nucleated RBC (0.0-0.012) X10*3/uL Nucleated RBC % (auto) (0.0-0.2) /100WBC D-Dimer High Sensitivty 198 NG/ML Sodium (135-145) mmol/L Potassium (3.3-5.1) mmol/L Chloride (96-108) mmol/L Carbon Dioxide (22-29) mmol/L Anion Gap (12-20) BUN (9-16) mg/dL Creatinine (0.5-1.4) mg/dL Estim Creat Clear Calc Estimated GFR Random Glucose (60-115) mg/dL Calcium (8.4-10.2) mg/dL Magnesium (1.6-2.6) mg/dL Total Bilirubin (0.0-1.0) mg/dL AST (5-31) U/L ALT (0-31) U/L Alkaline Phosphatase (39-117) U/L Total Protein (6.5-8.0) g/dL Albumin (3.5-5.0) g/dL TSH (0.32-4.0) uIU/mL Beta HCG, Quant mIU/mL Urine Color Urine Appearance Urine pH (5.0-9.0) Ur Specific [place] (1.005-1.025) Urine Protein (Neg-Trace) mg/dL Urine Glucose (UA) (Negative) mg/dL Urine Ketones (Negative) mg/dL Urine Blood (Negative) Urine Nitrite (Negative) Ur Leukocyte Esterase (Negative) Urine RBC (0-2) /HPF Urine WBC (0-5) /HPF Ur Squamous Epith Cells (0-2) /HPF Urine Bacteria (None Seen) Hyaline Casts (0-2) /LPF Monoscreen (Negative) Influenza Type A (PCR) (Negative) Influenza Type B (PCR) (Negative) RSV RNA Qual (PCR) (Negative) SARS-CoV-2 RNA (RT-PCR) (Negative) S. pyogenes GrpA YUMIKO Negative (Negative) Independent Interpretation I performed an independent interpretation of an: EKG Interpretation: Normal sinus rhythm at a ventricular rate of 71 beats per minute, AR interval 136, Qt/QTC 392/425, no STEMI. Radiology Impression Discussion of test interpretation with radiology: I have reviewed the radiologist's reading. Radiologist Impression: FINDINGS: No significant abnormality is noted involving the heart, lungs, mediastinum, bony thorax or soft tissues. XR/XR chest 2V IMPRESSION: No acute disease. Electronically signed by: Mike Rodriguez MD 04/25/2025 01:46 PM EDT RP Dictated By: Mike Rodriguez MD CLINICAL HISTORY: dizziness CT head without contrast Comparison: None provided Findings: No intra-axial mass, midline shift, hydrocephalus, or acute hemorrhage. The ventricles and subarachnoid spaces are normal in size in the ventricles are normal in position. No territorial infarct. There is no sinus or mastoid fluid. The orbits are within normal limits. No acute skull fracture. IMPRESSION: 1. No acute intracranial findings. This document has been electronically signed by: Humera Cerna MD on 04/25/2025 23:26:15 Discharge Plan Discharge Clinical Impression: Malaise Patient Disposition: Home, Self-Care Instructions: Fatigue (ED) Additional Instructions: You were seen in the emergency department today. Your workup today was reassuring. Please drink plenty of fluids get plenty of rest. Please follow-up with the primary care physician regarding this visit. If any new or worsening symptoms occur including but not limited to severe chest pain, shortness of breath, please seek emergent care. Prescriptions: No Action omeprazole 40 mg capsule,delayed release(DR/EC) 40 mg PO DAILY 7 Days Qty: 7 0RF famotidine 40 mg tablet 40 mg PO DAILY sucralfate 1 gram tablet 1 g PO BID gabapentin 100 mg capsule 100 mg PO DAILY cefuroxime axetil 500 mg tablet 500 mg PO Q12H Qty: 10 0RF Referrals: Jared Lorenzo MD [Primary Care Provider, Internal Medicine] Clinical Impression: Malaise Print Language: Russian
[2025-04-25 13:41] LABS: MANUAL DIFF FLAG NO
[2025-04-25 13:42] LABS: Hematocrit 33.7 % (37.0-47.0); Hemoglobin 11.9 g/dl (12.0-16.0); Imm Gran Abs Auto 0.01 X10*3/uL (0.00-0.03); Imm Gran Pct Auto 0.2 % (0.0-0.4); Lymphocytes Absolute Auto 1.5 X10*3/uL (1.2-4.9); Mean Corpuscular HGB Conc 35.3 g/dl (31.0-35.0); Mean Corpuscular Hemoglobin 28.8 pg (27.0-33.0); Mean Corpuscular Volume 81.6 fL (80.0-98.0); NRBC Abs Auto 0.000 X10*3/uL (0.0-0.012); NRBC Pct Auto 0.0 /100WBC (0.0-0.2); Platelet Count 344 X10*3/uL (160-400); Red Blood Count 4.13 X10*6/uL (4.20-5.50); White Blood Count 5.5 X10*3/uL (4.8-10.8)
[2025-04-25 13:52] LABS: Appearance Urine Clear; Glucose Urine UA Negative (Negative); PH 6.0 (5.0-9.0); Specific Gravity - Urine 1.020 (1.005-1.025); UMIC TRIGGER UACC YES
[2025-04-25 14:06] LABS: Alanine Aminotransferase 15 U/L (0-31); Albumin Level 4.6 g/dL (3.5-5.0); Alkaline Phosphatase 71 U/L (39-117); Anion Gap 12 (12-20); Aspartate Amino Transferase 19 U/L (5-31); Blood Urea Nitrogen 9 mg/dL (9-16); Calcium 9.0 mg/dL (8.4-10.2); Carbon Dioxide 27 mmol/L (22-29); Chloride 106 mmol/L (96-108); Creatinine Clr Calc Pharmacy 149.4; Estimated Glomerular Filt Rate > 60; Magnesium 1.8 mg/dL (1.6-2.6); Potassium 3.7 mmol/L (3.3-5.1); Sodium 141 mmol/L (135-145); Total Protein 7.1 g/dL (6.5-8.0)
[2025-04-25 17:52] VITALS: BP 132/79; PULSE 75; RESP 18; TEMP 36.2; O2SAT 97
[2025-04-25 18:24] VITALS: BP 118/76; BP 125/73; PULSE 75; PULSE 83
[2025-04-25 18:25] VITALS: BP 126/70; PULSE 86
[2025-04-25 19:15] LABS: IDNOW Serial# 58CA691E; Strep A Nucleic Acid Negative (Negative)
[2025-04-25 19:27] LABS: D Dimer High Sensitivity 198 NG/ML
[2025-04-25 19:43] LABS: Resp Syncy Virus RNA Qual PCR NEGATIVE (Negative); SARS COV2 PCR INHOUSE NEGATIVE (Negative)
[2025-04-25 19:46] LABS: Thyroid Stimulating Hormone 1.74 uIU/mL (0.32-4.0)
[2025-04-25 20:25] VITALS: BP 125/73; PULSE 71; RESP 18; TEMP 36.6; O2SAT 97
[2025-04-25 22:40] VITALS: BP 119/71; PULSE 69; RESP 18; TEMP 36.7; O2SAT 97
[2025-04-26 00:05] VITALS: BP 119/71; PULSE 69; RESP 18; TEMP 36.7; O2SAT 97
== END 2025-04-26 00:06 | disposition home or self-care (01) ==
PROVIDERS: Physician Assistant Medical; Registered Nurse Emergency; Emergency Provider Emergency Medicine; PCP Internal Medicine
DX: R07.89 Other chest pain (principal); R42 Dizziness and giddiness; M54.2 Cervicalgia; R10.2 Pelvic and perineal pain; Z03.818 Encounter for observation for suspected exposure to other biological agents ruled out; Z79.899 Other long term (current) drug therapy
CPT/HCPCS: 36415; 70450; 71046; 80053; 81001; 83735; 84443; 84702; 85025; 85379; 86308; 87637; 87651; 93005; 99284

== ENCOUNTER → 2025-04-25 12:59 | Outpatient (BNV) | payer OTHER, SELFPAY | PROVIDERS: Emergency Provider Emergency Medicine; PCP Internal Medicine; Visit Provider Internal Medicine | DX: R07.9 Chest pain, unspecified (principal) | CPT/HCPCS: 93010 ==

== ENCOUNTER → 2025-04-25 13:14 | Outpatient (BNV) | payer OTHER, SELFPAY | PROVIDERS: PCP Internal Medicine; Visit Provider Radiology Diagnostic Radiology | DX: R42 Dizziness and giddiness (principal) | CPT/HCPCS: 70450 ==